=== PATIENT | male | born 1960 | race Caucasian/White ===

== ENCOUNTER 2016-11-03 08:03 | Day surgery (SDC) | payer OTHER ==
[~2016-11-03] VITALS: Ht 177.8 cm; Wt 84.0 kg
[~2016-11-03 08:03] MED LIST: ALLO300T2 PO; AZU500 PO; CLOB15CR3 TOP; IMIQ1CRE10 TP; MELO-253 PO; Sodium Chloride LOK Flush 10 mL Syringe IV PRN; [UNRECOGNIZED DRUG - CODE] TP; fentaNYL-PF 50 mCg/mL 2 mL Inj IVPUSH PRN
[2016-11-03 08:28] VITALS: BP 128/87; PULSE 77; RESP 16; O2SAT 94
[2016-11-03] MEDS: 0.9% Sodium Chloride 1,000 ML IV SCH ×2 (09:20→09:33)
[2016-11-03 09:36] VITALS: BP 119/71; PULSE 85; RESP 16; O2SAT 93
[2016-11-03 09:40] VITALS: BP 126/73; PULSE 77; RESP 16; O2SAT 94
[2016-11-03 09:50] VITALS: BP 120/78; PULSE 71; RESP 16; O2SAT 96
[2016-11-03 10:00] VITALS: BP 139/90; PULSE 70; RESP 16; O2SAT 95
--- NOTE | 2016-11-03 11:54 | ENDO ---
[address] [address] ENDOSCOPY PROCEDURE PATIENT: CHICHO DEXTER : 1960 MR#: [id number] ADMIT: 11/03/2016 JOB ID: [id number] DATE: 11/03/2016 PROCEDURE: Colonoscopy. INDICATIONS: Screening. ASA CLASSIFICATION: II MALLAMPATI SCORE: 2 MEDICATIONS: Versed at 5 mg, fentanyl 100 mcg. INSTRUMENT USED: [id number]. PREPARATION QUALITY: Good. PROCEDURE DETAILS: After informed consent was obtained, the patient was brought into the GI suite where he was placed on oxygen via nasal cannula and monitored with continuous pulse oximeter, telemetry, and blood pressure monitoring. A time-out was performed. Then, he was placed in a left lateral decubitus position and medications were administered for sedation. Digital rectal exam with palpation of the prostate was performed, which was unremarkable. The colonoscope was then inserted into the rectum and advanced under direct visualization to the cecum, which was identified by the presence of the ileocecal valve and appendiceal orifice. Once the cecum was reached, the colonoscope was withdrawn back to the rectum as the mucosa and lumen were examined. In the rectum, retroflexion was performed. Following retroflexion, remaining air in the rectum was suctioned, and procedure was completed. FINDINGS: Normal exam from rectum to cecum. IMPRESSION: Normal colonoscopy. RECOMMENDATIONS: Repeat colonoscopy in 10 years, sooner if symptoms should dictate. COMPLICATIONS: None. ESTIMATED BLOOD LOSS: Zero.
== END 2016-11-03 23:59 | disposition home or self-care (01) ==
LOC: END 08:03
PROVIDERS: ATTEND Internal Medicine Gastroenterology
DX: Z12.11 Encounter for screening for malignant neoplasm of colon (principal); I10 Essential (primary) hypertension; M10.09 Idiopathic gout, multiple sites; E78.5 Hyperlipidemia, unspecified; F41.9 Anxiety disorder, unspecified; K21.9 Gastro-esophageal reflux disease without esophagitis; M25.673 Stiffness of unspecified ankle, not elsewhere classified; M25.676 Stiffness of unspecified foot, not elsewhere classified
CPT/HCPCS: G0121; G0500; J2250; J3010; J7030